=== PATIENT | male | born 1995 | race Caucasian/White ===

== ENCOUNTER 2018-10-26 20:15 | Emergency (ER) | payer OTHER, MEDICAID ==
[~2018-10-26] VITALS: Ht 175.3 cm; Wt 70.3 kg
[2018-10-26 20:19] VITALS: BP 143/95
== END 2018-10-26 20:40 | disposition home or self-care (01) ==
LOC: ER 20:20
DX: L02.414 Cutaneous abscess of left upper limb (principal); L02.413 Cutaneous abscess of right upper limb; F11.10 Opioid abuse, uncomplicated; E86.0 Dehydration; Z59.0 Homelessness

== ENCOUNTER 2018-10-27 00:07 | Emergency (ER) | payer OTHER, MEDICAID ==
[~2018-10-27] VITALS: Ht 175.3 cm; Wt 70.3 kg
--- NOTE | 2018-10-27 00:25 | NUR ---
[facility]. INTOXICATED. PREVIOUSLY DISCHARGED FROM HOSPITAL. AMBULATORY. PT IS FOR PSYCH CLEARANCE. DENIES SI AND HI. NAD, BREATHING EVEN AND UNLABORED. TO ER BED 7.
--- NOTE | 2018-10-27 01:30 | NUR ---
PT IN BED SLEEPING.
[2018-10-27 01:47] LABS: BASOPHILS % (AUTO) 0.3 % (0.0-2.0); EOSINOPHILS % (AUTO) 0.6 % (0.0-6.0); HEMATOCRIT 47 % (39-51); HEMOGLOBIN 15.9 g/dL (13.5-17.5); LYMPHOCYTES # (AUTO) 2.8 /CMM (0.8-4.8); LYMPHOCYTES % (AUTO) 22.2 % (20.0-44.0); MEAN CORPUSCULAR HGB CONC 34 g/dl (31.0-36.0); MEAN CORPUSCULAR VOLUME 92 fL (80-96); MONOCYTES # (AUTO) 1.8 /CMM (0.1-1.30); MONOCYTES % (AUTO) 14.6 % (2.0-12.0); NEUTROPHILS # (AUTO) 7.8 /CMM (1.8-8.9); NEUTROPHILS % (AUTO) 62.3 % (43.0-81.0); PLATELET COUNT (AUTO) 261 /CMM (150-450); RED BLOOD CELL COUNT(AUTO) 5.09 MIL/uL (4.5-6.0); WHITE BLOOD COUNT (AUTO) 12.5 K/uL (4.3-11.0)
[2018-10-27 01:49] LABS: CALCIUM, SERUM 9.4 mg/dL (8.5-10.1); CARBON DIOXIDE 23 mmol/L (21-32); CHLORIDE 103 mmol/L (98-107); GLUCOSE 101 mg/dL (74-106); POTASSIUM 3.5 mmol/L (3.5-5.1); SODIUM SERUM 138 mmol/L (136-145); UREA NITROGEN, BLOOD 16 mg/dL (7-18)
[2018-10-27 01:54] LABS: ALANINE AMINOTRANSFERASE 37 U/L (12-78); ALBUMIN 4.3 g/dL (3.4-5.0); ALCOHOL, BLOOD < 3 mg/dL (0-0); ALKALINE PHOSPHATASE 62 U/L (46-116); ASPARTATE AMINOTRANSFERASE 30 U/L (15-37); BILIRUBIN,DIRECT 0.1 mg/dL (0.0-0.2); BILIRUBIN,TOTAL 0.5 mg/dL (0.2-1.0); TOTAL PROTEIN, SERUM 8.6 g/dL (6.4-8.2)
[2018-10-27] MEDS ORDERED: ZIPRASIDONE MESYLATE 20 MG/VIAL VIAL IM ONE ×2 (02:00→02:30)
[2018-10-27] MEDS ORDERED: diphenhydrAMINE HCL 50 MG/ML VIAL IM ONE (02:00)
[2018-10-27 02:02] LABS: ACETAMINOPHEN 0 ug/ml (10-30); SALICYLATE 1.6 mg/dL (2.8-20.0)
[2018-10-27] MEDS ORDERED: diphenhydrAMINE HCL 50 MG/ML VIAL ONE (02:30)
--- NOTE | 2018-10-27 03:30 | NUR ---
PT IN BED SLEEPING IN BED. PT IS ARROUSABLE. NAD NOTED
[2018-10-27 03:49] LABS: APPEARANCE,URINE CLEAR (CLEAR); BILIRUBIN,URINE NEGATIVE (NEGATIVE); BLOOD, URINE NEGATIVE Ery/uL (NEGATIVE); COLOR,URINE YELLOW (YELLOW); LEUKOCYTE ESTERASE ,URINE NEGATIVE (NEGATIVE); NITRITE, URINE NEGATIVE (NEGATIVE); PROTEIN,URINE NEGATIVE (NEGATIVE); UGLUCOSE NEGATIVE (NEGATIVE); UROBILINOGEN,URINE 0.2 EU/dL (0.2)
[2018-10-27 03:51] LABS: KETONES,URINE NEGATIVE (NEGATIVE)
--- NOTE | 2018-10-27 04:30 | NUR ---
PT STILL SLEEPINGIN BED
--- NOTE | 2018-10-27 09:25 | NUR ---
PT IS D/C HOME, PT IS IN STABLE CONDITION, VSS, PT AMBULATORY WITH STEADY GAIT, CLEARED BY ROOF SERVICE TECHNICIAN, NO HOLD NECESSRARY, PT IS MEDICALLY STABLE FOR D/C, PT ESCORTED BY SECURITY TO WAITING ROOM.
[2018-10-27 09:26] VITALS: BP 110/60
== END 2018-10-27 09:29 | disposition home or self-care (01) ==
LOC: ER 00:09
DX: R45.1 Restlessness and agitation (principal); F19.10 Other psychoactive substance abuse, uncomplicated; Z59.0 Homelessness
CPT/HCPCS: 36415; 80048; 80076; 80305; 80307; 80329; 81001; 85025; 96372 ×2; 99283; G0480; J1200; J3486; 81000-TC